=== PATIENT | male | born 1985 | race Caucasian/White ===

== ENCOUNTER 2021-06-16 12:36 | Emergency (ER) | payer BC, SELFPAY ==
[2021-06-16 15:59] VITALS: BP 0/0; PULSE 0; RESP 0; TEMP -17.7; TEMP 0
== END 2021-06-16 16:01 | disposition left against medical advice (07) ==
LOC: UTC 12:42
PROVIDERS: Emergency Provider Nurse Practitioner Family; PCP Internal Medicine Adolescent Medicine
DX: Z53.21 Procedure and treatment not carried out due to patient leaving prior to being seen by health care provider (principal)
CPT/HCPCS: 99202; G0463

== ENCOUNTER → 2021-11-03 18:06 | Outpatient (CLI) | payer BC, SELFPAY | PROVIDERS: Visit Provider Nurse Practitioner | DX: Z20.822 Contact with and (suspected) exposure to COVID-19 (principal) | CPT/HCPCS: C9803; U0003; U0005 ==

== ENCOUNTER 2021-11-06 07:11 | Emergency (ER) | payer BC, SELFPAY ==
[2021-11-06 07:26] VITALS: BP 150/91; PULSE 98; RESP 18; TEMP 37; O2SAT 99; BMI 26.6
--- NOTE | 2021-11-06 07:32 | XR_ITS ---
PROCEDURE: XR LUMBAR SPINE 2-3V XR THORACIC SPINE 3V CLINICAL INDICATION: back pain COMPARISON: CR XR THORACIC SPINE 3V from 11/06/2021 FINDINGS: Thoracolumbar spine: Mild degenerative disc disease T10-T11 and T11-T12 and T12-L1. There is slight loss of height of T12 and L1 anteriorly. This is age indeterminate. There are no old exams available for comparison. The remaining lower lumbar spine and mid and upper thoracic spine have an unremarkable appearance. There is minimal lower thoracic scoliosis convex right. There is slight loss of height along the right lateral aspect of T12. IMPRESSION: Normal alignment. Lower thoracic spine and thoracolumbar junction. Mild thoracolumbar scoliosis convex right. There is mild loss of height anteriorly at T12 and L1 as well T12 on the right and T10 on the left with degenerative changes at these levels. These changes are age indeterminate. No retropulsion. Dictated by: Andrew Galindo MD 11/06/2021 08:48 Andrew Galindo MD in [facility] 11/06/2021 08:48
--- NOTE | 2021-11-06 08:35 | [facility].EDBACK ---
ED Disposition Clinical Impression: Lumbar radiculopathy, Muscle strain Disposition: Home, Self-Care Condition on Discharge: Good Instructions: DI for Low Back Pain, DI for Back Strain or Sprain, Lumbar Radiculopathy Additional Instructions: Please use the lidocaine patches and robaxin as prescribed. Please follow up with your primary care physician for further management. Please return to the ED for any concerning symptoms such as inability to ambulate, urinary retention, fecal incontinence or any other concerning symptoms. Prescriptions: methocarbamoL [Robaxin 100mg/ml] 750 mg .ROUTE Q8HP PRN #1 ml PRN Reason: Muscle Pain Transmission Status: Received by [facility] Lidocaine 1 each TP DAILY #15 patch Transmission Status: Received by [facility] Referrals: Aidan Fung MD [Primary Care Provider] - Time of Disposition: 09:55 - Critical Care Critical Care Time: No Attestation: On 11/06/21, the high probability of a clinically significant, sudden or life threatening deterioration of the following system(s) required my full and direct attention, intervention and personal management. The time I documented below is in addition to time spent performing reported procedures but includes the following listed in this critical care notation. Medical Decision Making - Medical Records Medical records reviewed: Yes: I reviewed the patient's medical records. - Aditya Inquiry Pt receiving controlled substance: No Vital Signs: 11/06/21 07:26 11/06/21 09:35 Temperature 98.6 F 98.6 F Temperature Source Oral Pulse Rate 94 H Pulse Rate [Right Radial] 98 H Respiratory Rate 18 18 Blood Pressure 141/90 H Blood Pressure [Right Arm] 150/91 H Blood Pressure Mean [Right Arm] 110 Blood Pressure Source [Right Arm] Automatic Cuff Blood Pressure Position [Right Arm] Supine 02 Sat by Pulse Oximetry 99 Oxygen Delivery Method Room Air - Lab Data Lab results reviewed: Yes: I reviewed the patient's lab results. Orders (Tests/Meds): ED MEDICATIONS Discontinued Medications Generic Name Dose Route Start Last Admin Trade Name Freq PRN Reason Stop Dose Admin Acetaminophen 1,000 mg 11/06/21 07:31 11/06/21 07:33 Acetaminophen 500mg Tab PO 11/06/21 07:32 1,000 mg ONCE ONE Administration Medical Decision Narrative: Mr. Aguayo is a 36-year-old male with past medical history for chronic back pain who presents to the emergency department with lower back pain. Patient is neurovascularly intact and hemodynamically stable on arrival. Patient reports intermittent shooting sensation down both legs. Patient denies any midline tenderness most of the pain is paraspinous. Patient denies urinary retention, fecal incontinence or any other red flag symptoms. Differentials to consider but not limited to include; less likely acute fracture in the setting of no trauma, radiculopathy, herniated disc, MSK strain. X-ray of the thoracolumbar region is obtained results are nonactionable. Patient is given lidocaine patches and Robaxin for symptomatic relief. Patient is instructed to follow-up with his primary care physician in 2 to 3 days for further management. Patient discharged in stable condition. Back Pain HPI - General Chief Complaint: Back Pain/Injury Stated Complaint: back pain, no accident Time Seen by Provider: 11/06/21 07:25 Mode of Arrival: Ambulatory Source of Information: Patient Limitations: No Limitations Description of Symptoms (Recalled from ER Triage Doc. by RN): Pt stated that he has been having this for the last few months. He was playing basketball a few days ago and he has this pulling feeling in his lower back. He stated that the last time this happened his PCP told him to come for x-rays. So its has happened again and wants to get it checked out. - History of Present Illness HPI Narrative: Mr. Aguayo is a 36 yo male w/ PMH for chronic back pain who presents to the emergenc
[2021-11-06 09:35] VITALS: BP 141/90; PULSE 94; RESP 18; TEMP 37; O2SAT 97
== END 2021-11-06 09:35 | disposition home or self-care (01) ==
PROVIDERS: Emergency Provider Emergency Medicine; PCP Internal Medicine Adolescent Medicine
DX: M54.16 Radiculopathy, lumbar region (principal); X50.3XXA Overexertion from repetitive movements, initial encounter; Y93.67 Activity, basketball
CPT/HCPCS: 72072; 72100; 99282

== ENCOUNTER → 2023-06-02 23:18 | Outpatient (CLI) | payer BC, SELFPAY ==
[2023-06-02 18:35] LABS: Alanine Aminotransferase 87 U/L (12-78); Albumin Level 4.8 g/dl (3.5-5.0); Albumin/Globulin Ratio 1.5 (1.1-1.8); Alkaline Phosphatase 88 U/L (38-126); Anion Gap 13.6 mEq/L (5-15); Aspartate Amino Transferase 68 U/L (17-59); Bilirubin,Total 0.5 mg/dl (0.2-1.3); Blood Urea Nitrogen 8 mg/dl (9-20); Calcium 9.7 mg/dl (8.4-10.2); Carbon Dioxide 27 mmol/L (22.0-30.0); Chloride 107 mmol/L (98-107); Chol/HDL Ratio 8.3 (1-3.5); Cholesterol 248 mg/dl (140-200); Estimated Glomerular Filt Rate 95 ml/min (>60); GFR (African American) 116 ML/MIN (>60); Globulin 3.1 g/dL (1.3-3.2); Glucose 108 mg/dl (74-100); HDL Cholesterol 30 mg/dl (40-60); Potassium 4.6 mmoL/L (3.5-5.1); Sodium 143 mmol/L (136-145); Total Protein,Serum 7.9 g/dl (6.3-8.2); Triglycerides 194 mg/dl (30-150); VLDL Cholesterol 39 mg/dL (0-40)
[2023-06-02 18:38] LABS: Basophils # 0.1 K/mm3 (0-0.2); Basophils % 1.3 % (0.1-2.0); Eosinophils # 0.3 K/mm3 (0.0-0.4); Eosinophils % 3.4 % (0.1-12.0); Hematocrit 48.1 % (42.0-52.0); Hemoglobin 15.5 g/dL (14.1-18.0); Lymphocytes # 2.1 K/mm3 (0.7-4.5); Lymphocytes % 26.6 % (10-50); Mean Corpuscular HGB Conc 32.2 g/dL (31.8-35.4); Mean Corpuscular Hemoglobin 28.2 pg (27.0-31.2); Mean Corpuscular Volume 87.3 fl (80-94); Mean Platelet Volume 8.7 fl (7.4-10.4); Monocytes # 0.7 K/mm3 (0.1-1.0); Monocytes % 8.3 % (1.7-9.3); Neutrophils # 4.8 K/mm3 (1.8-7.8); Neutrophils % 60.5 % (37.0-80.0); Platelet Count 240 K/mm3 (142-424); Red Cell Distribution Width 13.7 % (11.5-17.5); White Blood Count 7.9 K/mm3 (4.8-10.8)
[2023-06-02 18:46] LABS: Direct LDL Cholesterol 167.51 mg/dL (100-129)
[2023-06-02 19:04] LABS: Thyroid Stimulating Hormone 1.33 uIU/mL (0.465-4.68)
[2023-06-02 20:07] LABS: Hemoglobin A1C 5.4 % (4.0-6.0)
[2023-06-04 11:46] LABS: Insulin Level Total 33.5 uIU/mL (2.6-24.9)
== END ==
LOC: LAB.DROPOF 23:19
PROVIDERS: PCP Nurse Practitioner Family; Visit Provider Nurse Practitioner Family
DX: E16.2 Hypoglycemia, unspecified (principal)
CPT/HCPCS: 80053; 80061; 83036; 83525; 84443; 85025